=== PATIENT | female | born 1990 | race Caucasian/White ===

== ENCOUNTER 2017-09-17 14:39 | Emergency (ER) | payer MEDICAID ==
[~2017-09-17] VITALS: Ht 167.6 cm; Wt 85.4 kg
[2017-09-17 14:47] VITALS: BP 149/94
[2017-09-17 15:48] LABS: BASOPHILS # (AUTO) 0.1 K/uL (0.00-0.22); BASOPHILS % (AUTO) 0.6 % (0.0-2.0); EOSINOPHILS # (AUTO) 0.2 K/uL (0-0.4); EOSINOPHILS % (AUTO) 1.9 % (0.0-4.0); HEMATOCRIT 43.9 % (36-48); HEMOGLOBIN 13.9 g/dL (12.0-16.0); LYMPHOCYTES # (AUTO) 2.9 K/uL (2.5-16.5); LYMPHOCYTES % (AUTO) 29.3 % (20.5-51.1); MEAN CORPUSCULAR HEMOGLOBIN 28 pg (27-31); MEAN CORPUSCULAR HGB CONC 32 g/dL (33-37); MEAN CORPUSCULAR VOLUME 87.4 fL (80-94); MONOCYTES # (AUTO) 0.8 K/uL (0.8-1.0); MONOCYTES % (AUTO) 8.4 % (1.7-9.3); NEUTROPHILS % (AUTO) 59.8 % (42.2-75.2); PLATELET COUNT (AUTO) 219 K/uL (140-450); RED BLOOD CELL COUNT(AUTO) 5.02 MIL/uL (4.20-5.40); RED CELL DISTRIBUTION WIDTH 13.8 % (11.6-13.7)
[2017-09-17 18:09] VITALS: BP 139/88
== END 2017-09-17 18:09 | disposition home or self-care (01) ==
LOC: MED 14:39
DX: N92.6 Irregular menstruation, unspecified (principal); Z90.49 Acquired absence of other specified parts of digestive tract; Z88.0 Allergy status to penicillin
CPT/HCPCS: 36415; 76856; 81002; 81025; 84443; 85025; 99285; Q0092

== ENCOUNTER 2017-09-19 01:10 | Emergency (ER) | payer MEDICAID ==
[~2017-09-19] VITALS: Ht 167.6 cm; Wt 172.4 kg
[2017-09-19 01:16] VITALS: BP 121/77
[2017-09-19] MEDS ORDERED: KETOROLAC 60 MG/2 ML VIAL IM ONE (01:35)
[2017-09-19 02:02] VITALS: BP 121/77
== END 2017-09-19 02:02 | disposition home or self-care (01) ==
LOC: MED 01:10
DX: N93.8 Other specified abnormal uterine and vaginal bleeding (principal); Z90.89 Acquired absence of other organs; Z88.0 Allergy status to penicillin
CPT/HCPCS: 81002; 96372; 99283; J1885

== ENCOUNTER 2018-04-05 03:55 | Emergency (ER) | payer MEDICAID ==
[~2018-04-05] VITALS: Ht 167.6 cm; Wt 127.0 kg
[2018-04-05 04:04] VITALS: BP 131/69
--- NOTE | 2018-04-05 04:04 | NUR ---
TO BED # 11 AMBULATORY, REPORT GIVEN TO ALMA ROSA VAZQUEZ
--- NOTE | 2018-04-05 04:15 | NUR ---
PATIENT PRESENTS TO ED WITH VAGINAL BLEEDING SINCE SATUDAY . DENIES N/V/D; SKIN IS PINK/WARM/DRY; AAOX4 WITH EVEN AND STEADY GAIT; LUNGS CLEAR BL; HR EVEN AND REGULAR; PT DENIES ANY FEVER, CP, SOB, OR COUGH AT THIS TIME; PATIENT STATES PAIN OF 0/10 AT THIS TIME; VSS; PATIENT POSITIONED FOR COMFORT; HOB ELEVATED; BEDRAILS UP X2; BED DOWN. ER MD MADE AWARE OF PT STATUS.
[2018-04-05] MEDS ORDERED: KETOROLAC 30 MG/ML VIAL IVP ONE (04:45)
[2018-04-05] MEDS ORDERED: NACL 0.9% 1,000 ML IV ONE (04:45)
[2018-04-05 05:18] LABS: BASOPHILS # (AUTO) 0.1 K/uL (0.00-0.22); BASOPHILS % (AUTO) 0.5 % (0.0-2.0); EOSINOPHILS # (AUTO) 0.2 K/uL (0-0.4); HEMATOCRIT 41.1 % (36-48); HEMOGLOBIN 13.1 g/dL (12.0-16.0); MEAN CORPUSCULAR HEMOGLOBIN 28 pg (27-31); MEAN CORPUSCULAR HGB CONC 32 g/dL (33-37); MEAN CORPUSCULAR VOLUME 86.4 fL (80-94); MONOCYTES # (AUTO) 0.7 K/uL (0.8-1.0); NEUTROPHILS # (AUTO) 5.5 K/uL (1.8-7.7); NEUTROPHILS % (AUTO) 58.5 % (42.2-75.2); PLATELET COUNT (AUTO) 171 K/uL (140-450); RED BLOOD CELL COUNT(AUTO) 4.76 MIL/uL (4.20-5.40); RED CELL DISTRIBUTION WIDTH 14.2 % (11.6-13.7); WHITE BLOOD COUNT (AUTO) 9.4 K/uL (4.8-10.8)
[2018-04-05 05:23] LABS: ANION GAP 9.5 (8-16); CARBON DIOXIDE 28.7 mmol/L (21-32); CREATININE 0.5 mg/dL (0.6-1.3); POTASSIUM 4.2 mmol/L (3.5-5.1)
[2018-04-05 05:30] LABS: ALBUMIN 3.3 g/dL (3.4-5.0); PROTHROMBIN TIME 9.6 secs (10.8-13.4); TOTAL BILIRUBIN 0.2 mg/dL (0.0-1.0)
[2018-04-05 06:07] LABS: APPEARANCE,URINE CLOUDY (CLEAR); BILIRUBIN,URINE NEGATIVE (NEGATIVE); BLOOD, URINE 3+ (NEGATIVE); COLOR,URINE BROWN (YELLOW); LEUKOCYTE ESTERASE ,URINE TRACE (NEGATIVE); NITRITE, URINE POSITIVE (NEGATIVE); UGLUCOSE NEGATIVE (NEGATIVE)
[2018-04-05 06:15] LABS: RBC,URINE 50-80 /HPF (0-5); WBC,URINE 0-5 (RARE) /HPF (0-5); YEAST,URINE Few /HPF (None Seen)
--- NOTE | 2018-04-05 07:14 | NUR ---
Patient discharged with v/s stable. Written and verbal after care instructions given and explained. Patient alert, oriented and verbalized understanding of instructions. Ambulatory with steady gait. All questions addressed prior to discharge. ID band removed. Patient advised to follow up with PMD. Rx of provera 10 mg given. Patient educated on indication of medication including possible reaction and side effects. Opportunity to ask questions provided and answered.
[2018-04-05 07:15] VITALS: BP 113/64
== END 2018-04-05 07:14 | disposition home or self-care (01) ==
LOC: MED 03:55
DX: N93.8 Other specified abnormal uterine and vaginal bleeding (principal); R30.0 Dysuria
CPT/HCPCS: 36415; 76856; 80053; 81001; 81025; 85025; 85610; 85730; 86900; 86901; 87086; 96374; 99284; J1885; J7030

== ENCOUNTER 2018-04-28 20:24 | Emergency (ER) | payer MEDICAID ==
[~2018-04-28] VITALS: Ht 167.6 cm; Wt 181.9 kg
[2018-04-28 20:41] VITALS: BP 156/71
--- NOTE | 2018-04-28 20:52 | NUR ---
PT SENT TO THE LOBBY, LES
--- NOTE | 2018-04-28 20:52 | NUR ---
PT AMBULATED TO THE RESTROOM
--- NOTE | 2018-04-28 21:16 | NUR ---
Patient returned to ED lobby after completion of XRAY.
--- NOTE | 2018-04-28 22:08 | NUR ---
Patient ambulated to bed 8. RN evaluating patient at bedside.
--- NOTE | 2018-04-28 22:15 | NUR ---
27/F presents to ED with complaints of cough for the past 1 week and a half. Pt also c/o left ear pain, sore throat x1 week with congestion and fever on and off. Pt also c/o SOB and states that she can't catch her breath while she sleeps. No drooling noted. No signs of respiratory distress. Pt denies chest pain. Denies medical hx. Pt speaking in full clear sentences. NAD noted. VSS. Pt tearful and requesting pain medication.
--- NOTE | 2018-04-28 22:30 | NUR ---
Pt crying d/t pain in throat and ear. Dr. Brooks made aware. Orders received.
[2018-04-28] MEDS ORDERED: KETOROLAC 60 MG/2 ML VIAL IM ONE (22:35)
--- NOTE | 2018-04-28 23:45 | NUR ---
Patient being evaluated by physician at bedside.
[2018-04-29 00:11] VITALS: BP 101/48
--- NOTE | 2018-04-29 00:11 | NUR ---
Patient discharged with v/s stable. Written and verbal after care instructions given and explained. Patient alert, oriented and verbalized understanding of instructions. Ambulatory with steady gait. All questions addressed prior to discharge. ID band removed. Patient advised to follow up with PMD. Rx of Prednisone 20mg, Motrin 800mg, Zofran 8mg given. Patient educated on indication of medication including possible reaction and side effects. Opportunity to ask questions provided and answered.
== END 2018-04-29 00:11 | disposition home or self-care (01) ==
LOC: MED 20:24
DX: R05 Cough (principal); R06.02 Shortness of breath; H92.02 Otalgia, left ear; R50.9 Fever, unspecified; R11.0 Nausea; Z90.49 Acquired absence of other specified parts of digestive tract; Z88.0 Allergy status to penicillin
CPT/HCPCS: 71046; 96372; 99283; J1885

== ENCOUNTER 2018-05-03 09:06 | Emergency (ER) | payer MEDICAID ==
[~2018-05-03] VITALS: Ht 167.6 cm; Wt 181.9 kg
[2018-05-03 09:18] VITALS: BP 151/104
--- NOTE | 2018-05-03 09:20 | NUR ---
PATIENT AMB WITH STEADY GAIT TO BED 06
--- NOTE | 2018-05-03 09:22 | NUR ---
BIB WITH COMPLAINTS OF BL EAR PAIN, +COUGH +CONGESTION, +BODY ACHES, +FEVERS, +THROAT PAIN, +CONGESTION. DENIES NVD. STATES PAIN 910 AT THIS TIME. STATES SHE WAS HERE FOR LEFT SIDED EAR PAIN ON TUESDAY AND WAS GIVEN A STEROID AND IBUPROFEN WITHOUT RELIEF. STATES HER SYMPTOMS STARTED 3 WEEKS AGO. HX: GALLBLADDER REMOVED RX: DENIES
--- NOTE | 2018-05-03 11:16 | NUR ---
FLU SWAB OBTAINED. PATIENT STATES PAIN 10/[address] REILLY INFORMED.
--- NOTE | 2018-05-03 11:38 | NUR ---
MEDICATIONS GIVEN ORDERED, DOCUMENTED ON PAPER CHARTING.
[2018-05-03] MEDS ORDERED: KETOROLAC 60 MG/2 ML VIAL IM ONE (11:39)
[2018-05-03] MEDS ORDERED: PROMETHAZINE 25 MG/ML VIAL ONE (11:39)
--- NOTE | 2018-05-03 13:30 | NUR ---
PATIENT HAS BEEN SENT TO LOBBY DUE TO CODE IN BED 11
--- NOTE | 2018-05-03 14:20 | NUR ---
BROUGHT BACK IN FROM LOBBY.
[2018-05-03 14:24] VITALS: BP 148/98
--- NOTE | 2018-05-03 14:24 | NUR ---
Patient discharged with v/s stable. Written and verbal after care instructions given and explained. Patient alert, oriented and verbalized understanding of instructions. Ambulatory with steady gait. All questions addressed prior to discharge. ID band removed. Patient advised to follow up with PMD. Rx of MOTRIN, CLINDAMYCIN, PROMETHAZINE given. Patient educated on indication of medication including possible reaction and side effects. Opportunity to ask questions provided and answered.
== END 2018-05-03 14:24 | disposition home or self-care (01) ==
LOC: MED 09:06
DX: J32.9 Chronic sinusitis, unspecified (principal); J40 Bronchitis, not specified as acute or chronic; Z88.0 Allergy status to penicillin
CPT/HCPCS: 87804; 99283; J1885; J2550; 36415

== ENCOUNTER 2018-05-16 14:28 | Emergency (ER) | payer MEDICAID ==
[~2018-05-16] VITALS: Ht 167.6 cm; Wt 182.8 kg
[2018-05-16 14:35] VITALS: BP 103/75
--- NOTE | 2018-05-16 15:12 | NUR ---
PT TO ER BED 11
[2018-05-16] MEDS ORDERED: ALBUTEROL SULFATE/IPRATROPIU 3 ML SOL IH ONE (15:25)
[2018-05-16] MEDS ORDERED: KETOROLAC 60 MG/2 ML VIAL IM ONE (15:35)
--- NOTE | 2018-05-16 15:36 | NUR ---
C/O PERSISTANT COUGH X 5 WKS; NOW WITH PAIN TO LEFT RIBS AREA WITH COUGH SEEN IN OUR ER FOR SAME COMPLAINT APR 28 & ; HAS NOT MADE APPT WITH PMD YET FINISHED COURSE CLINDAMYCIN, LAST DOSE 2 DAYS AGO
[2018-05-16 16:41] VITALS: BP 103/75
--- NOTE | 2018-05-16 16:41 | NUR ---
Patient discharged with v/s stable. Written and verbal after care instructions given and explained. Patient alert, oriented and verbalized understanding of instructions. Ambulatory with steady gait. All questions addressed prior to discharge. ID band removed. Patient advised to follow up with PMD. Rx of PROMETHAZINE, DOXYCYCLINE, FLONASE, AND VENTOLIN given. Patient educated on indication of medication including possible reaction and side effects. Opportunity to ask questions provided and answered.
== END 2018-05-16 16:41 | disposition home or self-care (01) ==
LOC: MED 14:28
DX: J40 Bronchitis, not specified as acute or chronic (principal); H66.93 Otitis media, unspecified, bilateral; Z88.0 Allergy status to penicillin
CPT/HCPCS: 71045; 81002; 81025; 94640; 96372; 99283; J1885; J7620; Q0092

== ENCOUNTER 2022-11-26 10:27 | Emergency (ER) | payer MEDICAID ==
[~2022-11-26] VITALS: Ht 167.6 cm; Wt 204.1 kg
[2022-11-26 10:39] VITALS: BP 167/6; PULSE 84; RESP 18; TEMP 98.9; O2SAT 98
[2022-11-26] MEDS ORDERED: CIPR7.5S OT (11:22)
[2022-11-26] MEDS ORDERED: DOXY-690 PO (11:22)
[2022-11-26 11:27] VITALS: BP 167/6; PULSE 84; RESP 18; TEMP 98.9; O2SAT 98
== END 2022-11-26 11:30 | disposition home or self-care (01) ==
LOC: MED 10:27
DX: H60.91 Unspecified otitis externa, right ear (principal); G03.8 Meningitis due to other specified causes; Z88.0 Allergy status to penicillin; Z79.899 Other long term (current) drug therapy
CPT/HCPCS: 99283

== ENCOUNTER 2023-05-30 15:07 | Emergency (ER) | payer MEDICAID, OTHER ==
[~2023-05-30] VITALS: Ht 167.6 cm; Wt 226.8 kg
[~2023-05-30 15:07] MED LIST: CIPR7.5S OT; DOXY-690 PO
[2023-05-30 15:30] VITALS: BP 147/92; PULSE 88; RESP 18; TEMP 97.4; O2SAT 97
[2023-05-30] MEDS: DEXAMETHASONE 10 MG/ML VIAL IM ONE (16:55)
[2023-05-30 17:20] LABS: FLU A ANTIGEN negative (NEGATIVE); FLU B ANTIGEN NEGATIVE (NEGATIVE)
[2023-05-30] MEDS ORDERED: IBUP-2213 PO (18:15)
[2023-05-30] MEDS ORDERED: BENZ-300 PO (18:15)
== END 2023-05-30 19:21 | disposition home or self-care (01) ==
LOC: MED 15:07
DX: J06.9 Acute upper respiratory infection, unspecified (principal); R03.0 Elevated blood-pressure reading, without diagnosis of hypertension; Z88.0 Allergy status to penicillin; Z20.822 Contact with and (suspected) exposure to COVID-19
CPT/HCPCS: 87081; 87426; 87804; 96372; 99283; J1100